=== PATIENT | male | born 2005 | race African-American/Black ===

== ENCOUNTER 2023-12-16 09:59 | Emergency (ER) | payer SELFPAY ==
[2023-12-16 10:15] VITALS: BP 115/69; PULSE 77; RESP 18; TEMP 37; O2SAT 100
[2023-12-16 10:34] LABS: Basophils Percent Auto 0.7 % (0.2-1.2); Eosinophils Absolute Auto 0.1 K/mm3 (0-0.3); Eosinophils Percent Auto 1.3 % (0-4.4); Hematocrit 48.5 % (42.0-52.0); Hemoglobin 15.3 g/dL (14.0-18.0); Immature Granulocyte Absolute 0.01 K/mm3 (0.00-0.031); Immature Granulocyte Percent A 0.2 % (0-0.5); Lymphocytes Absolute Auto 1.66 K/mm3 (0.9-3.2); Lymphocytes Percent Auto 36.6 % (18.3-44.2); Mean Corpuscular HGB Conc 31.5 g/dl (32-36); Mean Corpuscular Hemoglobin 25.7 pg (26-34); Mean Corpuscular Volume 81.4 fl (80-100); Mean Platelet Volume 10.7 fl (7.4-10.4); Monocytes Absolute Auto 0.3 K/mm3 (0.1-0.6); Monocytes Percent Auto 5.7 % (2.6-8.5); Neutrophils Absolute Auto 2.5 K/mm3 (1.3-6.7); Neutrophils Percent Auto 55.5 % (45.5-73.1); Platelet Count Result 178 k/mm3 (150-375); Red Blood Count 5.96 M/mm3 (4.6-6.20); Red Cell Distribution Width 14.1 % (11.5-14.5); White Blood Count 4.5 K/mm3 (4.5-10.0)
[2023-12-16 10:50] LABS: Alanine Aminotransferase 11 U/L (6-50); Alkaline Phosphatase 59 U/L (38-126); Anion Gap 7 mmol/L (4-12); Aspartate Amino Transferase 24 U/L (17-59); Bilirubin,Total 0.9 mg/dL (0.2-1.3); Blood Urea Nitrogen 17 mg/dL (9-20); Calcium 10.1 mg/dL (8.4-10.2); Carbon Dioxide 31 mmol/L (22-30); Chloride 101 mmol/L (98-107); Estimated CRCL calculation 101 ml/min; Estimated Glomerular Filt Rate > 60; Glucose 86 mg/dL (65-110); Lipase 47 U/L (23-300); Potassium 3.9 mmol/L (3.4-5.0); Sodium 139 mmol/L (137-145)
[2023-12-16 10:50] LABS: Appearance Urine Cloudy (Clear); Bacteria Urine None Seen /hpf; Bilirubin Urine Negative (Negative); Blood Urine Negative (Negative); Color Urine Dark Yellow (Yellow); Glucose Urine UA Negative (Negative); Ketones Urine 3+ mg/dL (Negative); Leukocyte Esterase Ur 1+ LEU/UL (Negative); Mucus Urine Present /lpf; Nitrate Urine Negative (Negative); Non Pathogenic Casts 0-2; Protein Urine 1+ mg/dL (Negative); RBC Urine 0-2 /hpf (0-2); Specific Grav Ur 1.037 (1.001-1.035); Squamous Epithelial Cell Urine None Seen /hpf (Few); WBC Urine 21-50 /hpf (0-3)
[2023-12-16 11:00] LABS: Add Urine Microscopic? YES
[2023-12-16 12:48] VITALS: BP 129/88; PULSE 96; RESP 17; O2SAT 100
[2023-12-16 13:26] LABS: Amphetamine Screen Urine Negative (Negative); Barbiturate Screen Urine Negative (Negative); Benzodiazepines Screen Urine Negative (Negative); Cannabinoid Screen Urine Positive (Negative); Cocaine Screen Urine Negative (Negative); Methadone Screen Urine Negative (Negative); Opiate Screen Urine Negative (Negative); Phencyclidine Screen Urine Negative (Negative)
[2023-12-16] MEDS: SODIUM CHLORIDE 0.9% IV 2,000 ML 999 ML IV CONT (13:29)
--- NOTE | 2023-12-16 13:37 | ED.GENADULT ---
HPI - General Adult General Chief complaint: Weakness Stated complaint: weakness, abd pain. n/v Time Seen by Provider: 12/16/23 12:56 History of Present Illness HPI narrative: this is a 18-year-old male presenting for multiple complaints. First complaint is weakness. Patient says he has been feeling weak for 1 week. He has no associated fever chills nausea vomiting diarrhea chest pain difficulty breathing or abdominal pain. He does have dysuria. He is concerned he may have a UTI or STD. Patient has had innumerable amount of female partners over the last 6 months. He does not use protection. He has a history of STDs in the past. Patient was recently [facility] with [facility] week ago. Since then he has been seen at [place] for identical presentation. Related Data Allergies Allergy/AdvReac Type Severity Reaction Status Date / Time No Known Allergies Allergy Verified 12/16/23 10:05 [facility] Past Medical History Medical History Psychiatric illness STD exposure Exam Narrative: APPEARANCE: No apparent distress. Head: atraumatic. EYES: EOMI, NOSE: Atraumatic NECK: Trachea midline RESPIRATORY: No increased rate of breathing Clear to auscultation CARDIOVASCULAR: RRR, ABDOMINAL: Non-distended soft soft nontender, no CVA tenderness general exam normal external genitalia without ulceration or testicular tenderness, no expressible discharge MUSCULOSKELETAl: No obvious deformities NEURO: Alert. Moving 4/4 extremities SKIN:: Warm, dry. Normal color PSYCHIATRIC: Normal affect Course Vital Signs Vital signs: Vital Signs Temperature 98.6 F 12/16/23 10:15 Pulse Rate 77 12/16/23 10:15 Respiratory Rate 18 12/16/23 10:15 Blood Pressure 115/69 12/16/23 10:15 Pulse Oximetry 100 12/16/23 10:15 Temperature 98.6 F 12/16/23 10:15 Pulse Rate 88 12/16/23 14:06 Respiratory Rate 14 12/16/23 14:06 Blood Pressure 130/84 12/16/23 14:06 Pulse Oximetry 100 12/16/23 14:06 Medical Decision Making [facility] Narrative Medical decision making narrative: -Course: 18-year-old male presenting with weakness and urinary complaints. Positive for chlamydia. Will be treated appropriately. Still waiting for HIV results and he can check my chart. Patient discharged with primary care follow-up -DDX includes but is not limited to: viral illness, dehydration STDs exposure, urinary tract infection -Co-morbidities complicating care: psychiatric illness -Social determinants of health: unemployed, positive for marijuana -Independent interpretation of studies: labs reviewed and within normal limits urine showed +1 leuk esterase and 21-50 white blood cells per high-power field. Chlamydia positive. UDS positive for marijuana -Interventions: 2 L normal saline, doxycycline -Shared decision making / Disposition: discharge -RX doxycycline Vital Signs Vital Signs: Vital Signs Temperature 98.6 F 12/16/23 10:15 Pulse Rate 77 12/16/23 10:15 Respiratory Rate 18 12/16/23 10:15 Blood Pressure 115/69 12/16/23 10:15 Pulse Oximetry 100 12/16/23 10:15 Temperature 98.6 F 12/16/23 10:15 Pulse Rate 88 12/16/23 14:06 Respiratory Rate 14 12/16/23 14:06 Blood Pressure 130/84 12/16/23 14:06 Pulse Oximetry 100 12/16/23 14:06 Lab Data 12/16/23 10:27 12/16/23 10:27 Labs: Lab Results 12/16/23 12/16/23 12/16/23 Range/Units 10:27 10:34 13:30 WBC 4.5 (4.5-10.0) K/mm3 RBC 5.96 (4.6-6.20) M/mm3 Hgb 15.3 (14.0-18.0) g/dL Hct 48.5 (42.0-52.0) % MCV 81.4 (80-100) fl MCH 25.7 L (26-34) pg MCHC 31.5 L (32-36) g/dl RDW 14.1 (11.5-14.5) % Plt Count 178 (150-375) k/mm3 MPV 10.7 H (7.4-10.4) fl Immature Gran % (Auto) 0.2 (0-0.5) % Neut % (Auto) 55.5 (45.5-73.1) % Lymph % (Auto) 36.6 (18.3-44.2) % Dixie % (Auto) 5.7 (2.
[2023-12-16 14:06] VITALS: BP 130/84; PULSE 88; RESP 14; O2SAT 100
[2023-12-16 14:20] LABS: Influenza A QL RT-PCR Negative (Negative); Influenza B QL RT-PCR Negative (Negative); RSV RNA, RT-PCR Negative (Negative); SARS-CoV-2 RNA PCR Negative (Negative)
[2023-12-16 14:40] LABS: Trichomonas Vag PCR NOT DETECTED (NOT DETECTE)
[2023-12-16 15:05] LABS: Chlamydia trachomatis DETECTED (NOT DETECTE); Neisseria gonorrhoeae PCR NOT DETECTED (NOT DETECTE)
[2023-12-16 15:26] VITALS: BP 115/71; PULSE 84; RESP 12; O2SAT 100
[2023-12-16] MEDS: DOXYCYCLINE HYCLATE 100 MG TABLET PO (16:25)
[2023-12-19 11:42] LABS: HIV 1 2 Ag Ab 4th Gen w Rflxs Nonreactive (Nonreactive)
== END 2023-12-16 16:29 | disposition home or self-care (01) ==
PROVIDERS: Emergency Medicine; Emergency Provider Emergency Medicine; Referring Provider Family Medicine
DX: A56.8 Sexually transmitted chlamydial infection of other sites (principal); Z20.822 Contact with and (suspected) exposure to COVID-19
CPT/HCPCS: 36415; 80053; 80307; 81001; 83690; 85025; 87086; 87389; 87491; 87591; 87637; 87661; 96360; 96361; 99283; A9270; J7030

== ENCOUNTER 2025-09-08 21:45 | Emergency (ER) | payer SELFPAY ==
--- NOTE | ~2025-09-08 | XR_ITS ---
Examination: XR forearm RT 2V, XR elbow RT 2V Clinical History: pain Comparison: None Technique: 3 views right elbow, 2 views right forearm Findings/impression: Right elbow: 1. No fracture or dislocation identified. Right forearm: 1. No fracture. Reviewed, dictated and finalized at location [facility] [employer] [employer]
--- NOTE | 2025-09-08 23:41 | ED_ITS ---
HPI - Extremity Injury (Upper) General Chief Complaint: Extremity Injury, Upper Stated Complaint: skating, right upper arm to right forearm injury Time Seen by Provider: 09/08/25 23:09 History of Present Illness HPI narrative: 20-year-old otherwise healthy male presenting with right upper extremity injury after he landed on his right elbow on hardwood floor while he was roller- skating. Patient states he has some pain in his right elbow going down to his mid forearm and up to his mid humerus area. Some range of motion restrictions secondary to the pain. No paresthesias distally. No shoulder involvement. No head strike. No medical conditions or any other complaints. Did not take anything for the pain or swelling before arrival. Good hyperion essbase developer strength and able to oppose each digit. No paresthesias or weakness in the arm. No numbness or tingling around the elbow or arm/forearm. Related Data Allergies Allergy/AdvReac Type Severity Reaction Status Date / Time No Known Allergies Allergy Verified 12/16/23 10:05 Review of Systems Review of Systems: As reviewed above in HPI All systems reviewed & are unremarkable except as noted in HPI and below PMFSH Past Medical History Medical History STD exposure Psychiatric illness Exam Narrative: GENERAL: [Well-appearing, well-nourished, and in no acute distress.] HEAD: [Normocephalic, atraumatic.] EYES: [PERRLA and EOMI.] ENT: Nares clear, no rhinorrhea or epistaxis. Mucous membranes moist. NECK: Supple. CHEST: [Clear to auscultation. No respiratory distress.] HEART: [Regular rate and rhythm]. No murmur heard. [Normal peripheral pulses.] ABDOMEN: [Soft, nondistended], [nontender], [No rigidity or guarding] EXTREMITIES: Elbow flexion and extension limited secondary to pain. Pronation and supination also elicits pain. Some minor tenderness and swelling around the olecranon Process. No skin breakdown. Distal neuro vasculature intact with good hyperion essbase developer strength and 2+ radial pulses. No paresthesias good capillary refill. Proximal shoulder without any injury. Full range of motion in his shoulder and wrist. SKIN: Warm, dry, no rash. NEURO: [No focal deficits]. Alert and oriented [x3.] PSYCH: [Normal mood and affect.] Procedures Orthopedic Splinting/Casting Injury #1: Splinting/Casting Date: 09/08/25 Splinting/Casting Time: 23:52 Side: right Upper Extremity Injury Location: elbow Upper Extremity Immobilizer: posterior splint Splint: customized in ED Pre-Procedure Neuro Vascular Exam: normal Post-Procedure Neuro Vascular Exam: normal Other Orthopedic Equipment: other (sling) MDM MDM Narrative Medical decision making narrative: 20-year-old otherwise healthy male presenting with right upper extremity injury after he landed on his right elbow on hardwood floor while he was roller- skating. Patient states he has some pain in his right elbow going down to his mid forearm and up to his mid humerus area. Some range of motion restrictions secondary to the pain. No paresthesias distally. No shoulder involvement. No head strike. No medical conditions or any other complaints. Did not take anything for the pain or swelling before arrival. Good hyperion essbase developer strength and able to oppose each digit. No paresthesias or weakness in the arm. No numbness or tingling around the elbow or arm/forearm. Elbow flexion and extension limited secondary to pain. Pronation and supination also elicits pain. Some minor tenderness and swelling around the olecranon Process. No skin breakdown. Distal neuro vasculature intact with good hyperion essbase developer strength and 2+ radial pulses. No paresthesias good capillary refill. Proximal shoulder without any injury. Full range of motion in his shoulder and wrist. Patient given Toradol. Splint was applied after x-rays reviewed showing small joint effusion suspicious for occult fracture but no dislocation. Nonspecific soft tissue swelling. Recommend follow-up per radiology with images in 7-10 days. Will be referred to Orthopedics. Spoke to Dr. Boone over the phone and made patient aware of the follow-up instructions and return precautions. Pain control medications sent. Differential Diagnosis Differential Diagnosis: Elbow fracture, elbow dislocation, occult fracture, contusion Imaging Data Attestation: I personally reviewed and interpreted this imaging study as follows: My impression: soft tissue swelling and joint effusion concerning for occult fracture. Discharge Plan Discharge Clinical Impression: Elbow injury, Effusion of elbow joint, right Patient Disposition: Home Condition: Stable Instructions: Antibiotic Form, Elbow Fracture (DC) Additional Instructions: X-rays of the right elbow show a joint effusion suspicious for an occult fracture. No dislocation. Will need orthopedics follow-up and repeat imaging about 7 in 10 days. We have placed into a splint and sling for comfort and positioning. We have given you pain control medications prescriptions. Return with any emergent concerns otherwise follow-up with the provided orthopedics doctor who we already spoke to. Patient Language: Latvian Prescriptions: New ibuprofen 800 mg tablet 800 mg PO TID PRN (Reason: pain) Qty: 30 0RF acetaminophen [Tylenol Extra Strength] 500 mg tablet 1,000 mg PO TID PRN (Reason: pain) Qty: 30 0RF No Action doxycycline hyclate 100 mg capsule 100 mg PO DAILY Qty: 14 0RF Follow-up/Referrals: PHYSICIAN,SNOW REMOVAL/PLOWING [Primary Care Provider, Internal Medicine] Andriy Boone MD [Physician, Orthopedics] - 1 Week Referral Note: Elbow injury Time of Disposition: 23:51
[2025-09-09] MEDS: KETOROLAC 30 MG/ML VIAL (*BKC) IM (00:39)
[2025-09-09 01:02] VITALS: BP 132/76; PULSE 83; RESP 15; TEMP 36.8; O2SAT 100
[2025-09-09 02:47] VITALS: BP 132/76; PULSE 83; RESP 15; TEMP 36.8; O2SAT 100
== END 2025-09-09 02:51 | disposition home or self-care (01) ==
PROVIDERS: Emergency Provider Student in an Organized Health Care Education/Training Program
DX: S59.901A Unspecified injury of right elbow, initial encounter (principal); M25.421 Effusion, right elbow; W18.30XA Fall on same level, unspecified, initial encounter; Y93.51 Activity, roller skating (inline) and skateboarding
CPT/HCPCS: 29105; 73070; 73090; 96372; 99284; J1885